=== PATIENT | male | born 1960 | race Caucasian/White ===

== ENCOUNTER → 2021-04-06 | Outpatient (CLI) | payer BC ==
--- NOTE | 2021-04-06 17:03 | NM ---
EXAMINATION TYPE: NM stress cardiolite complete DATE OF EXAM: 04/06/2021 COMPARISON: NONE HISTORY: Tachycardia unspecified TECHNIQUE: After the intravenous administration of 9.8 mCi Tc 99m Sestamibi - Rest images obtained 4 5 minutes post injection. The patient exercised using a KADE protocol and 1 minute prior to peak e xercise was injected with 24.1 mCi Tc 99m Sestamibi - Stress images obtained 10 minutes post injectio n. FINDINGS: Targeted heart rate was achieved during performance of the study, patient achieved 87% of predicted m aximal heart rate. Review of stress and rest SPECT images demonstrates no distinct perfusion abnormal ity. Gated analysis shows normal wall motion with an estimated left ventricular ejection fraction of 69 %. IMPRESSION: No scintigraphic evidence for reversible ischemia, consider echocardiographic correlation for elevate d ejection fraction
--- NOTE | 2021-04-06 17:42 | P.STRESS ---
- Stress Test Note Stress Test Results/Findings: Exam Performed: NM stress cardiolite complete Exam Date: 04/06/21 Reason for Exam: SHORTNESS OF BREATH, TACHYCARDIA Height: 5 ft 9 in Weight: 88.6 kg Protocol: CARDIOLITE KADE Stage: 2 Duration of Exercise: 5:00 Resting Heart Rate: 74 Resting Blood Pressure: 133/81 Maximum Achieved Heart Rate: 141 Maximum Achieved Blood Pressure: 193/62 85% PMHR: 138 100% PMHR: 162 METS: 6.6 Technologist Comment: Stress Test Results/Findings: Baseline heart rate 74 beats a minute, Baseline blood pressure 133/81 mmHg Baseline EKG shows sinus rhythm normal [place] narrow QRS normal ST segments Patient exercised on a Kade protocol for only 5 minutes He was quite short of breath by then. Occasional PVCs are noted Normal blood pressure response noted There is no incisions for ischemia peak exercise @Recovery there was a 0.[address] depression noted that resolved in 5-6 minutes Impression minimally abnormal EKG during recovery Reduced exercise capacity and shortness of breath within 5 minutes of exercise line occasional PVCs
--- NOTE | 2021-04-07 09:07 | ECHOS ---
Stress Test Results/Findings: Exam Performed: NM stress cardiolite complete Exam Date: 04/06/21 Reason for Exam: SHORTNESS OF BREATH, TACHYCARDIA Height: 5 ft 9 in Weight: 88.6 kg Protocol: CARDIOLITE KADE Stage: 2 Duration of Exercise: 5:00 Resting Heart Rate: 74 Resting Blood Pressure: 133/81 Maximum Achieved Heart Rate: 141 Maximum Achieved Blood Pressure: 193/62 85% PMHR: 138 100% PMHR: 162 METS: 6.6 Technologist Comment: Stress Test Results/Findings: Baseline heart rate 74 beats a minute, Baseline blood pressure 133/81 mmHg Baseline EKG shows sinus rhythm normal [place] narrow QRS normal ST segments Patient exercised on a Kade protocol for only 5 minutes He was quite short of breath by then. Occasional PVCs are noted Normal blood pressure response noted There is no incisions for ischemia peak exercise @Recovery there was a 0.[address] depression noted that resolved in 5-6 minutes Impression minimally abnormal EKG during recovery Reduced exercise capacity and shortness of breath within 5 minutes of exercise line occasional PVCs MTDD
== END | disposition home or self-care (01) ==
LOC: RADNMMAIN 08:20
PROVIDERS: ATTEND Family Medicine
DX: R00.0 Tachycardia, unspecified (principal)
CPT/HCPCS: 93017; 78452; A9500

== ENCOUNTER → 2021-04-14 | Outpatient (CLI) | payer BC ==
--- NOTE | 2021-04-16 09:19 | CTL ---
EXAMINATION TYPE: CT Low Dose Lung DATE OF EXAM ORDERED: 04/14/2021 COMPARISON: None HISTORY: . Low Dose CT Lung Screening CT DLP: 119.[address] CTDI: 2.90 mGy IV CONTRAST USED: None. SCREENING VISIT: First visit COMPARISON: None. TECHNIQUE: Low dose computed tomography scan was performed through the chest at 1 millimeter thick se ctions and reconstructed images in the coronal plane at [address] DIAGNOSTIC QUALITY: Satisfactory FINDINGS: LUNG NODULES: Not presentLeft lung: no nodules identified.Right lung: no nodules identified. LUNGS: COPD: Severity: None Fibrosis: Severity:None Lymph nodes: None Other findings: None RIGHT PLEURAL SPACE: Effusion: None Calcification: None Thickening: None Pneumothorax: None LEFT PLEURAL SPACE: Effusion: None Calcification: None Thickening: None Pneumothorax: None HEART: Heart Size: Mildly enlarged Coronary calcification: Mild Pericardial effusion: None OTHER FINDINGS: Upper abdomen: No significant abnormality Bony thorax: Degenerative changes Supraclavicular region: No significant abnormalityOther: No significant abnormalityI IMPRESSION: No distinct pulmonary nodularity. FOLLOW UP CT CHEST RECOMMENDATION: Follow-up screening in one year. Smoking cessation advised. CT LUNG RAD: LUNG RAD CATEGORY 1 negative
== END | disposition home or self-care (01) ==
LOC: RADCTMAIN 17:40
PROVIDERS: ATTEND Family Medicine
DX: Z09 Encounter for follow-up examination after completed treatment for conditions other than malignant neoplasm (principal); Z87.891 Personal history of nicotine dependence
CPT/HCPCS: 71271

== ENCOUNTER → 2023-09-17 | Outpatient (CLI) | payer BC ==
--- NOTE | 2023-09-24 16:39 | CTL ---
EXAMINATION TYPE: CT Low Dose Lung DATE OF EXAM ORDERED: 09/17/2023 HISTORY: 62-year-old male F17.210 NICOTINE DEPENDENCE, CIGARETTES, UNCOMPLIC. Lung cancer screening. Current smoker with 44 pack-year history. CT DLP: 112.[address] CTDI: 2.8 mGy Automated exposure control for dose reduction was used. SCREENING VISIT: 2 year follow-up COMPARISON: 04/14/2021 TECHNIQUE: Low dose computed tomography scan was performed through the chest with coronal and sagitta l reconstructions. CT DIAGNOSTIC QUALITY: Satisfactory FINDINGS: Heart normal size without pericardial effusion. Scattered three-vessel coronary artery calcifications are present. Ectatic aortic root and ascending aorta 3.6 cm. Conventional] anatomy. No thoracic lymphadenopathy by CT size criteria. Mild to moderate diffuse bronchial wall thickening. Minimal biapical pleural parenchymal scarring. 4 mm left apical pulmonary nodule, axial image 56 not well seen previously. 6 mm left upper lobe pulmonary nodule, axial image 54. Slightly ill-defined margins. 5 mm anterior left upper lobe pulmonary nodule axial image 95. 4 mm lingular pulmonary nodule, axial image 207. 4 mm right upper lobe pulmonary nodule, axial image 97. 4 mm anterior right midlung pulmonary nodule, axial image 110. No consolidation or pleural effusion. Visualized upper abdomen shows probable ingested material within the stomach. Bones: Mild anterior endplate spondylosis lower thoracic spine. IMPRESSION: 1. LungRADS Category 4A (suspicious, 5-15% chance of malignancy); the number of new pulmonary nodules measuring up to 6 mm. As some of these nodules are ill-defined, we suspect an infectious/postinflamm atory etiology rather than a neoplastic etiology. 2. Bronchial wall thickening suggests bronchitis or chronic asthma. CT LUNG RAD AND CT CHEST RECOMMENDATION: Lung-Rad 4A Suspicious: Follow-up 3 month LDCT or PET/CT may be used when there is a > 8 mm solid component. S Modifier (other clinically significant findings): None
== END | disposition home or self-care (01) ==
LOC: RADCTMAIN 18:32
PROVIDERS: ATTEND Family Medicine
DX: Z12.2 Encounter for screening for malignant neoplasm of respiratory organs (principal); J98.09 Other diseases of bronchus, not elsewhere classified; R91.8 Other nonspecific abnormal finding of lung field; F17.210 Nicotine dependence, cigarettes, uncomplicated
CPT/HCPCS: 71271

== ENCOUNTER 2024-07-14 19:51 | Emergency (ER) | payer OTHER, BC ==
--- NOTE | 2024-07-14 20:03 | ED ---
Back Pain HPI - General Stated Complaint: [facility] Back Pain Time Seen by Provider: 07/14/24 20:03 Source: patient, RN notes reviewed Mode of arrival: ambulatory Limitations: no limitations - History of Present Illness Initial Comments: 63-year-old male presented to ER with a chief complaint of lumbar back pain. 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 Patient states he has been experiencing intense right sided lower back pain since. He was seen at [facility] and received IM steroids. Patient was then again seen at [facility] and received another IM steroid. Patient was discharged with Flexeril, orphenadrine and Medrol Dosepak. He states the pain is now traveling down his right leg. Denies any new injuries or traumas. Denies any saddle paresthesias, bowel or bladder incontinence, fevers or history of IV drug use. - Related Data Previous Rx's Medication Instructions Recorded methocarbamoL [Robaxin] 500 mg PO TID PRN #15 tab 07/14/24 Allergies Allergy/AdvReac Type Severity Reaction Status Date / Time No Known Allergies Allergy Verified 07/14/24 20:37 Review of Systems ROS Statement: Those systems with pertinent positive or pertinent negative responses have been documented in the HPI. ROS Other: All systems not noted in ROS Statement are negative. General Exam - General Exam Comments Initial Comments: Visual Physical Exam Vital signs reviewed General: Well-appearing, nontoxic, no acute distress. Head: Normocephalic, atraumatic Eyes: PERRLA, EOMI ENT: Airway patent Chest: Nonlabored breathing Skin: No visual rash, normal skin tone Neuro: Alert and oriented 3 Musculoskeletal: No gross abnormalities Course Vital Signs 07/14/24 07/14/24 20:34 22:28 Temperature 98.4 F Pulse Rate 100 86 Respiratory 18 18 Rate Blood Pressure 128/70 129/85 O2 Sat by Pulse 98 98 Oximetry Medical Decision Making - Medical Decision Making I performed the quick note portion of this chart. Electronically signed by Albertina Mathew PA-C Was pt. sent in by a medical professional or institution ([facility] Valdes, ZIPPER REPAIRER, urgent care, hospital, or care home...) When possible be specific @ -No Did you speak to anyone other than the patient for history (EMS, parent, family, police, friend...)? What history was obtained from this source @ -Aiding in HPI and past medical history. Did you review nursing and triage notes (agree or disagree)? Why? @ -I reviewed and agree with nursing and triage notes Were old charts reviewed (outside hosp., previous admission, EMS record, old EKG, old radiological studies, urgent care reports/EKG's, care home records)? Report findings @ -No old charts were reviewed Differential Diagnosis (chest pain, altered mental status, abdominal pain women, abdominal pain men, vaginal bleeding, weakness, fever, dyspnea, syncope, headache, dizziness, GI bleed, back pain, seizure, CVA, palpatations, mental health, musculoskeletal)? @ -Differential Back Pain:Strain, zoster, cauda equina syndrome, epidural abscess, vertebral osteomyelitis, discitis, fracture, subluxation, disc herniation, DJD, spinal stenosis, dissection, AAA, pancreatitis, peptic ulcer disease, pyelonephritis, kidney stone, this is not meant to be an all-inclusive list. EKG interpreted by me (3pts min.). @ -None done X-rays interpreted by me (1pt min.). @ -Lumbar spine x-rays interpreted by me negative for acute process. CT interpreted by me (1pt min.). @ -None done U/S interpreted by me (1pt. min.). @ -None done What testing was considered but not performed or refused? (CT, X-rays, U/S, labs)? Why? @ -None What meds were considered but not given or refused? Why? @ -None Did you discuss the management of the patient with other professionals (professionals i.e. , PA, ZIPPER REPAIRER, lab, RT, psych nurse, social sciences chair, fast food shift lead, teacher, fisheries technical officer, block and case maker)? Give summary @ -No Was smoking cessation discussed for >3mins.? @ -No Was critical care preformed (if so, how long)? @ -No Were there social determinants of health that impacted care today? How? (Homelessness, low income, unemployed, alcoholism, drug addiction, transportation, low edu. Level, literacy, decrease access to med. care, fdc, rehab)? @ -No Was there de-escalation of care discussed even if they declined (Discuss DNR or withdrawal of care, Hospice)? DNR status @ -No What co-morbidities impacted this encounter? (DM, HTN, Smoking, COPD, CAD, Cancer, CVA, ARF, Chemo, Hep., AIDS, mental health diagnosis, sleep apnea, morbid obesity)? @ -None Was patient admitted / discharged? Hospital course, mention meds given and route, prescriptions, significant lab abnormalities, going to OR and other pertinent info. @ -Discharge. 63-year-old male presented to the ER with a chief complaint of lumbar back pain. History and physical exam completed. Vitals within normal limits. Patient in no signs of acute distress and nontoxic-appearing. There is focal tenderness to right paraspinal muscles. No overlying skin changes. Bilateral lower extremities neurovascular intact. No red flag back pain symptoms indicative cauda equina syndrome. X-rays and symptomatic control in the ER, patient is agreeable. X-ray obtained negative for acute process. Patient received IM Toradol, Tylenol 3 and Robaxin in the ER for pain control. Upon reevaluation, patient resting comfortably in exam room no signs of acute distress. Results discussed with patient, all questions answered. As patient recently finished up Medrol Dosepak and received IM steroids at other facilities patient will be prescribed Robaxin and a starter pack for Tylenol 3 for pain control. Advise close follow-up with orthopedics, referral given. Strict return parameters discussed. Patient discharged in stable condition with follow-up to orthopedics. Patient verbally expressed understanding and agreement with care plan. Case discussed with ED attending, Dr. Geronimo. Undiagnosed new problem with uncertain prognosis? @ -No Drug Therapy requiring intensive monitoring for toxicity (Heparin, Nitro, Insulin, Cardizem)? @ -No Were any procedures done? @ -No Diagnosis/symptom? @ -Back pain Acute, or Chronic, or Acute on Chronic? @ -Acute Uncomplicated (without systemic symptoms) or Complicated (systemic symptoms)? @ -Uncomplicated Side effects of treatment? @ -No Exacerbation, Progression, or Severe Exacerbation? @ -No Poses a threat to life or bodily function? How? (Chest pain, [place], [place], pneumonia, PE, COPD, DKA, ARF, appy, cholecystitis, CVA, Diverticulitis, Homicidal, Suicidal, threat to staff... and all critical care pts) @ -No - Radiology Data Radiology results: report reviewed, image reviewed Disposition Clinical Impression: Back pain Disposition: HOME SELF-CARE Condition: Stable Instructions (If sedation given, give patient instructions): Back Pain (ED) Additional Instructions: Follow-up with orthopedics. Return to the ER for any new or worsening concerns. Prescriptions: methocarbamoL [Robaxin] 500 mg PO TID PRN #15 tab PRN Reason: muscle spasms Is patient prescribed a controlled substance at d/c from ED?: No Referrals: Meredith Geronimo DO [Primary Care Provider] - 1-2 days Jak Bartlett MD [STAFF PHYSICIAN] - 1-2 days Time of Disposition: 21:55
[2024-07-14 20:37] VITALS: RESP 18; TEMP 98.4
--- NOTE | 2024-07-14 21:03 | XR ---
EXAMINATION TYPE: XR lumbar spine 2 or 3V DATE OF EXAM: 07/14/2024 8:46 PM CLINICAL INDICATION: Male, 63 years old with history of pain; [facility] COMPARISON: None TECHNIQUE: XR lumbar spine 2 or 3V - Frontal, lateral and coned in L5-S1 lateral views of the spine. FINDINGS: No evidence of any acute osseous pathology. No evidence of loss of vertebral body height i s seen. There is normal alignment of the lumbar vertebral bodies. Scattered disc space narrowing. Mul tilevel marginal osteophyte formation throughout the visualized spine. There is facet joint arthropat hy throughout the spine. Scattered at least mild neural foraminal stenosis. IMPRESSION: 1. No acute fracture. 2. 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 [facility], , 07/14/2024 9:01 PM
[2024-07-14] MEDS: KETOROLAC 15 MG/ML 1 ML VIAL IM STA (21:46)
[2024-07-14] MEDS: Acetaminophen-Codeine 300-30mg TAB PO STA (22:14)
[2024-07-14] MEDS: ACET/COD 300 MG/30 MG STARTER PACK 6 TAB BTL PO STA (22:14)
[2024-07-14] MEDS: methocarbamoL 500 MG TAB PO STA (22:20)
[2024-07-14 22:30] VITALS: BP 129/85; PULSE 86
== END 2024-07-14 22:22 | disposition home or self-care (01) ==
LOC: EC 19:51
DX: M51.369 Other intervertebral disc degeneration, lumbar region without mention of lumbar back pain or lower extremity pain (principal)
CPT/HCPCS: 72100; 96372; 99283